=== PATIENT | female | born 1940 | race African-American/Black ===

== ENCOUNTER 2019-08-07 09:24 | Inpatient (IN) | payer BC, OTHER ==
[~2019-08-07] VITALS: Ht 160 cm; Wt 72.1 kg
[2019-08-07] MEDS ORDERED: AMARYL2 MG PO (09:27)
[2019-08-07 09:30] VITALS: BP 169/67
[2019-08-07 10:05] LABS: ABSOLUTE NEUTROPHILS 2.9 thou/uL (1.4-8.2); BASOPHILS 0.5 % (0.0-2.0); EOSINOPHILS 0.4 % (0.0-3.0); HEMATOCRIT 37.9 % (37.0-47.0); HEMOGLOBIN 13.3 gm/dL (12.0-15.0); LYMPHOCYTES 31.6 % (24.0-44.0); MCH 31.1 pg (26.0-34.0); MCV 88.9 fL (80.0-100.0); MONOCYTES 11.9 % (1.0-8.0); PLATELET COUNT 327 thou/uL (150-400); POLYS 55.6 % (36.0-66.0); RBC 4.26 mil/uL (4.20-5.00); RDW 12.9 % (10.5-14.5); WBC 5.1 thou/uL (4.0-11.0)
[2019-08-07 10:16] LABS: ALBUMIN 3.6 g/dL (3.4-5.0); CALCIUM 8.9 mg/dL (8.5-10.1); CREATININE 0.9 mg/dL (0.6-1.0); POTASSIUM 3.3 mmol/L (3.5-5.1); TOTAL BILIRUBIN 0.7 mg/dL (<0.1-1.0)
[2019-08-07] MEDS ORDERED: INDERAL LA120 M1 PO (10:56)
[2019-08-07] MEDS ORDERED: DIOVAN160 MG PO (10:57)
[2019-08-07] MEDS ORDERED: POTASSIUM20 PO (10:57)
[2019-08-07] MEDS ORDERED: MICROZIDE12.5 MG PO (10:57)
[2019-08-07] MEDS ORDERED: SIMBRINZA 1%-0.28 ML OTIC (10:58)
[2019-08-07 12:07] LABS: URINE BILIRUBIN NEGATIVE (Negative); URINE BLOOD TRACE (Negative); URINE CLARITY CLEAR; URINE COLOR YELLOW; URINE GLUCOSE-RANDOM* 2+ (Negative); URINE KETONES NEGATIVE (Negative); URINE LEUKOCYTES-REFLEX NEGATIVE (Negative); URINE NITRITE-REFLEX NEGATIVE (Negative); URINE PROTEIN (DIPSTICK) NEGATIVE (Negative); URINE SPECIFIC GRAVITY <= 1.005 (1.005-1.035); URINE UROBILINOGEN 0.2 E.U./dl (0.2-1.0)
[2019-08-07 14:59] VITALS: BP 163/76
[2019-08-07 16:09] VITALS: BP 162/78
[2019-08-07] MEDS ORDERED: PROBIOTIC1 EAC7 PO (16:33)
[2019-08-07] MEDS ORDERED: HYDROCODON-ACE1 EAC5 PO (16:35)
[2019-08-07] MEDS ORDERED: SUDAFED PE10 M2 PO (16:35)
[2019-08-07 17:00] VITALS: BP 169/90
--- NOTE | 2019-08-07 18:53 | NUR ---
PT ADMITTED AT 1700, VSS, AMBULATED TO BED WITH SBA, IVF INFUSING. PAGED DR MARTEL, CALL BACK RECEIVED AROUND 1840 AFTER TWO PAGES, ORDER FOR STAT BMP RECEIVED, HE DOES NOT WANT PT HOME MEDICATIONS ORDERED D/T HYPONATREMIA, STRICT BEDREST AND NPO ALSO ORDERED
[2019-08-07 19:03] LABS: CALCIUM 8.4 mg/dL (8.5-10.1); POTASSIUM 3.4 mmol/L (3.5-5.1)
[2019-08-07 19:40] VITALS: BP 168/84
[2019-08-08] VITALS: BP 155/76
[2019-08-08 04:00] VITALS: BP 149/78
[2019-08-08 05:50] LABS: CALCIUM 8.6 mg/dL (8.5-10.1); CREATININE 0.9 mg/dL (0.6-1.0); MAGNESIUM 1.7 mg/dL (1.8-2.4); POTASSIUM 3.6 mmol/L (3.5-5.1)
--- NOTE | 2019-08-08 06:15 | NUR ---
FOLLOWING POC WITH IVF AND PT HAS BEEN NPO SINCE 2399. PT A/O X4. PT STATES NO PAIN OR N/V. VSS, AND TELEMENTRY SHOWS SR. FALL PRECAUTIONS IN PLACE AND HOURLY ROUNDING.
[2019-08-08 07:25] VITALS: BP 212/113
[2019-08-08 11:03] VITALS: BP 185/89
[2019-08-08 12:40] LABS: CALCIUM 8.8 mg/dL (8.5-10.1); CREATININE 0.8 mg/dL (0.6-1.0); POTASSIUM 3.5 mmol/L (3.5-5.1)
--- NOTE | 2019-08-08 14:24 | NUR ---
PT ADMITTED RELATED TO HYPONATREMIA. CM REVIEWED CHART AND SPOKE WITH CARE TEAM. CM MET WITH PT AT BEDSIDE THIS DAY. PT IS A&O X4. CM ROLE INTRODUCED. PT INDICATED SHE LIVES IN A HOUSE WITH HER SPOUSE WITH NO STEPS TO ENTER AND N12 STEPS INSIDE. 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 PT INDICATED NO DME OR HH HX. PT INDICATED SHE PLANS TO RETURN HOME ONCE MEDICALLY STABLE. CM TO FOLLOW REGARDING DC PLANNING.
[2019-08-08 15:13] VITALS: BP 171/76
[2019-08-08 15:25] LABS: CALCIUM 8.3 mg/dL (8.5-10.1); CREATININE 0.9 mg/dL (0.6-1.0); POTASSIUM 3.6 mmol/L (3.5-5.1)
--- NOTE | 2019-08-08 18:16 | NUR ---
PATIENT DOING VERY WELL TODAY. STATES FEELING BETTER. ALERT AND ORIENTED X 4. UP WITH STANDBY ASSIST TO BATHROOM. STEADY GAIT NOTED. DENIED PAIN. IVF'S CONTINUED ORDERED. NA LEVEL UP TO 124. STATED SHE HOPES SHE CAN GET OUT OF HERE SOON. VERY PLEASANT AND COOPERATIVE.
[2019-08-08 20:21] VITALS: BP 178/100
[2019-08-09 03:35] VITALS: BP 190/91
[2019-08-09 05:08] LABS: CREATININE 0.8 mg/dL (0.6-1.0); POTASSIUM 4.1 mmol/L (3.5-5.1)
[2019-08-09 07:08] VITALS: BP 178/84
--- NOTE | 2019-08-09 08:43 | NUR ---
PT RESTING IN ROOM OFF AND ON, NO C/O PAIN, VSS BP ELEVATED/NA+ UP TO 128 THIS AM, IV FLUIDS DC'D, PT HOPING TO BE MORE ACTIVE AND MAYBE GO HOME SOON, REPORT GIVEN TO NEXT SHIFT TO CON'T WITH PPOC.
[2019-08-09] MEDS ORDERED: DOXYCYCLINE HYC50 MG PO (09:01)
[2019-08-09 10:51] VITALS: BP 178/84
[2019-08-09 11:07] VITALS: BP 175/69
[2019-08-09 12:45] VITALS: BP 160/88
--- NOTE | 2019-08-09 13:00 | NUR ---
pt is A&OX3, PT'S electroly balance have improved, pt's bp has improved too, pt was d/c to home at 1300pm, RN has giving pt and family d/c teaching, they understander well.
--- NOTE | 2019-08-11 06:53 | H ---
[facility] [place] [address] HISTORY AND PHYSICAL Name: SUNNY BROWN Room #: 357-P [facility] IN M.R.#: [id number] Admission: 08/07/19 Attend Phys: Ludy Erickson Discharge: 08/09/19 Date of : 40 Report #: [id number] THIS REPORT FOR: //name// CC: Cassius Levine DATE OF SERVICE: 08/07/2019 CHIEF COMPLAINT: This is a patient with upper respiratory tract symptoms with severe weakness and severe hyponatremia. HISTORY OF PRESENT ILLNESS: This is a patient, who is well known to our service and over the last couple of weeks has had upper respiratory tract symptoms and was presented to the office and laboratory parameters were obtained because she was very weakened. Sodium level came back at 112 and so she was subsequently admitted. PAST MEDICAL AND SURGICAL HISTORY: Noteworthy for previous cholecystectomy, hernia repair, and bladder surgery. She has had a hysterectomy in the past, cataract surgery, and glaucoma surgery. MEDICATIONS: She currently takes glimepiride, propranolol, hydrochlorothiazide, valsartan, potassium, and Simbrinza drops. ALLERGIES: INCLUDE TO SULFONAMIDES. SOCIAL HISTORY: She is fully active. No smoking or alcohol of any significance. She is . FAMILY HISTORY: Noncontributory. REVIEW OF SYSTEMS: Ten-point was entirely negative other than the generalized weakness and the sinus type congestion. PHYSICAL EXAMINATION: GENERAL: Shows her to be in no distress. VITAL SIGNS: Stable. HEENT: Showed some congestion, some conjunctival injection was noted. NECK: Supple, without thyromegaly or adenopathy. CHEST: Clear. CARDIOVASCULAR: Showed a regular rhythm without murmur. ABDOMEN: Soft and nontender. EXTREMITIES: Negative. LABORATORY DATA: Sodium level was 110 and potassium was 3.3. IMAGING DATA: Chest x-ray as well as CBC were normal. [facility] [address] [place] [address] HISTORY AND PHYSICAL Name: SUNNY BROWN Room #: 357-P [facility] IN .R.#: [id number] Admission: 08/07/19 Attend Phys: Ludy Erickson Discharge: 08/09/19 Date of : 40 Report #: [id number] ASSESSMENT: 1. Diabetes. 2. Viral upper respiratory tract infection. 3. Debility. PLAN: Low level, essentially fluid restriction with n.p.o. status and IV normal saline. Hopefully, over the next 24-48 hours, we can correct the serum sodium with fluid restriction and then start antibiotics in the form of doxycycline for suspected atypical bacterial infection. <ELECTRONICALLY SIGNED> By: Cassius Levine MD 08/11/19 [id number] Cassius Levine MD /[facility]
== END 2019-08-09 13:06 | disposition home or self-care (01) | DRG 641 ==
LOC: ER 09:24 → 3W 12:09 → EROBS 12:09 → 3W 16:21
PROVIDERS: Emergency Medicine; Internal Medicine; ADMIT Internal Medicine
PROC: 3E0234Z Introduction of Serum, Toxoid and Vaccine into Muscle, Percutaneous Approach (ICD-10-PCS; principal; 2019-08-08)
DX: E87.1 Hypo-osmolality and hyponatremia (principal); E87.6 Hypokalemia; E11.9 Type 2 diabetes mellitus without complications; J06.9 Acute upper respiratory infection, unspecified; Z90.710 Acquired absence of both cervix and uterus; Z98.42 Cataract extraction status, left eye; Z98.41 Cataract extraction status, right eye; Z79.899 Other long term (current) drug therapy; Z88.2 Allergy status to sulfonamides; Z90.49 Acquired absence of other specified parts of digestive tract; Z23 Encounter for immunization
CPT/HCPCS: 10879